=== PATIENT | male | born 1945 | race Two or more races ===

== ENCOUNTER 2016-11-29 09:56 | Day surgery (SDC) | payer BC ==
[2016-11-29] MEDS ORDERED: LIDOCAINE 2% MDV (20MG/ML) 20ML VIAL IV ONE (14:00)
[2016-11-29] MEDS ORDERED: MIDAZOLAM HCL 2MG/2ML VIAL IV ONE (14:00)
[2016-11-29] MEDS ORDERED: PROPOFOL 10 MG/ML VIAL IV ONE (14:00)
--- NOTE | 2016-11-30 14:40 | Operative Note ---
DATE OF SURGERY: 11/29/2016 REFERRING PROVIDER: Mango Quinteros DO PREOPERATIVE DIAGNOSIS: Personal history of sessile serrated adenoma. POSTOPERATIVE DIAGNOSIS: Cecal polyp and transverse colon polyp, each removed with a cold forceps. OPERATION: COLONOSCOPY with cold forceps polypectomy. Preparation Quality: Good. Estimated Blood Loss: Minimal. Samples Obtained: Cecal polyp, transverse colon polyp. PROCEDURE: After informed consent was obtained, the patient was placed in the left lateral decubitus position in the endoscopy suite, sedated and monitored by the Department of Anesthesia. Digital rectal exam was unremarkable. A well-lubricated PCF-180 colonoscope was inserted into the rectum and advanced to the cecum. The preparation quality was good. There was tortuosity and redundancy of the colon requiring abdominal pressure to intubate the cecal cap. The appendiceal orifice was unremarkable. There was a 3-4 mm sessile polyp in the cecum removed with a cold forceps. Minimal bleeding was noted at the site. The remainder of the cecum and ascending colon were unremarkable. The transverse colon revealed a nub of diminutive polyp removed with a cold forceps. Minimal bleeding was noted. The remainder of the transverse colon, descending colon, sigmoid colon, and rectum are unremarkable. J-turn views of the anorectum were unremarkable. Forward views were unremarkable. The endoscope was straightened, the rectal ampulla deflated and the endoscope was removed. RECOMMENDATIONS: Patient should resume his medications and diet. He will likely require repeat exam in 5 years with a final determination based on tissue histology. As always, thank you for allowing me to participate in the health care of your patients. Alvin Diane DO CC: Mango Quinteros DO [facility]
== END 2016-11-29 12:20 | disposition home or self-care (01) ==
LOC: HOP 09:56
PROVIDERS: ATTEND Internal Medicine Gastroenterology
DX: Z86.010 Personal history of colon polyps (principal); D12.0 Benign neoplasm of cecum; D12.3 Benign neoplasm of transverse colon; I10 Essential (primary) hypertension; E78.00 Pure hypercholesterolemia, unspecified